=== PATIENT | female | born 1995 | race Caucasian/White ===

== ENCOUNTER 2017-07-15 10:09 | Emergency (ER) | payer OTHER ==
--- NOTE | 2017-07-15 12:29 | UC ---
Respiratory Complaint HPI - HPI Summary HPI Summary: 22yo WF p/w c/p fever 103 yesterday associated with bodyaches, cough and fatigue and PEARL - History of Current Complaint Chief Complaint: UCRespiratory Stated Complaint: DIZZY,COUGH,FEVER,VOMITTING Time Seen by Provider: 07/15/17 12:20 Hx Obtained From: Patient Hx Last Menstrual Period: 07/05/17 Onset/Duration: Sudden Onset Timing: Constant Severity Initially: Moderate Severity Currently: Moderate Associated Signs And Symptoms: Positive: Fever, Chills, Dizziness. Negative: Dyspnea, Pleuritic Chest Pain, Wheezing, Hemoptysis - Allergies/Home Medications Allergies/Adverse Reactions: Allergies Allergy/AdvReac Type Severity Reaction Status Date / Time No Known Allergies Allergy Verified 07/15/17 10:28 Home Medications: Home Medications Citalopram TAB* [Celexa TAB*] 20 mg PO DAILY 07/15/17 [History Confirmed ] Spironolactone TAB* [Aldactone TAB 25 MG*] 25 mg PO DAILY 07/15/17 [History Confirmed 07/15/17] busPIRone TAB* [Buspar TAB*] 10 mg PO DAILY 07/15/17 [History Confirmed 07/15/17 ] PMH/Surg Hx/FS Hx/Imm Hx Previously Healthy: Yes - Surgical History Surgical History: None - Social History Alcohol Use: Occasionally Substance Use Type: None Smoking Status (MU): Never Smoked Tobacco Review of Systems Constitutional: Fever, Chills, Fatigue Skin: Negative Eyes: Negative ENT: Negative Respiratory: Shortness Of Breath, Cough Cardiovascular: Negative Gastrointestinal: Negative Genitourinary: Negative Motor: Negative Neurovascular: Negative Musculoskeletal: Myalgia Neurological: Negative Psychological: Negative All Other Systems Reviewed And Are Negative: Yes Physical Exam Triage Information Reviewed: Yes Appearance: No Pain Distress Vital Signs: Initial Vital Signs Temp 36.6 C 07/15/17 10:31 Pulse 113 07/15/17 10:31 Resp 20 07/15/17 10:31 BP 103/70 07/15/17 10:31 Pulse Ox 100 07/15/17 10:31 Eye Exam: Normal ENT: Positive: Pharyngeal erythema Dental Exam: Normal Neck exam: Normal Neck: Positive: 1 Respiratory: Positive: Lungs clear Cardiovascular Exam: Normal Abdominal Exam: Normal Musculoskeletal Exam: Normal Neurological Exam: Normal Psychological Exam: Normal Skin Exam: Normal UC Diagnostic Evaluation - Laboratory O2 Sat by Pulse Oximetry: 100 Respiratory Course/Dx - Course Course Of Treatment: Rapid Flu positive for Flu A - Differential Dx/Diagnosis Provider Diagnoses: Influenza A Discharge - Discharge Plan Condition: Stable Disposition: HOME Prescriptions: Oseltamivir Phosphate [Tamiflu] 75 mg PO BID 5 Days #10 cap Patient Education Materials: Influenza (ED) Referrals: No Primary Care Phys,NOPCP [Primary Care Provider] - Additional Instructions: as tolerated
== END 2017-07-15 13:08 | disposition home or self-care (01) ==
LOC: UCEAST 10:09
DX: J09.X2 Influenza due to identified novel influenza A virus with other respiratory manifestations (principal); Z72.89 Other problems related to lifestyle
CPT/HCPCS: 87502; 99202; G0463